=== PATIENT | male | born 1985 | race Two or more races ===

== ENCOUNTER 2022-08-07 09:04 | Inpatient (IN) | payer OTHER ==
[~2022-08-07] VITALS: Ht 177.8 cm; Wt 95.3 kg
--- NOTE | 2022-08-07 09:20 | NUR ---
Patient came in to the er c/o groin area/ inner thigh pain and swelling x 4 days. On room air, breathing normally and unlabored. kept comfortable, will continue to monitor accordingly.
[2022-08-07] MEDS ORDERED: ONDANSETRON HCL/PF 4 MG/2 ML VIAL IV ONE (10:00)
[2022-08-07] MEDS ORDERED: IV NS 0.9% 1,000 ML BAG IV ONE (10:00)
[2022-08-07] MEDS ORDERED: MORPHINE SULFATE INJ 2 MG/ML DISP.SYRIN IV ONE (10:00)
[2022-08-07] MEDS ORDERED: MORPHINE SULFATE INJ 4 MG/ML DISP.SYRIN ONE (10:10)
[2022-08-07] MEDS ORDERED: ONDANSETRON HCL/PF 4 MG/2 ML VIAL ONE (10:10)
[2022-08-07 10:31] LABS: BASOPHILS % (AUTO) 0.5 % (0.0-2.0); EOSINOPHILS % (AUTO) 0.8 % (0.0-6.0); HEMATOCRIT 41 % (39-51); HEMOGLOBIN 13.8 g/dL (13.5-17.5); LYMPHOCYTES # (AUTO) 1.5 K/uL (0.8-4.8); LYMPHOCYTES % (AUTO) 16.2 % (20.0-44.0); MEAN CORPUSCULAR HGB CONC 33 g/dl (31.0-36.0); MEAN CORPUSCULAR VOLUME 86 fL (80-96); MONOCYTES # (AUTO) 0.8 K/uL (0.1-1.30); MONOCYTES % (AUTO) 8.4 % (2.0-12.0); NEUTROPHILS % (AUTO) 74.1 % (43.0-81.0); PLATELET COUNT (AUTO) 282 K/uL (150-450); RED BLOOD CELL COUNT(AUTO) 4.76 MIL/uL (4.5-6.0); WHITE BLOOD COUNT (AUTO) 9.4 K/uL (4.3-11.0)
[2022-08-07] MEDS ORDERED: IOHEXOL-350 100 ML VIAL IV ONE (10:34)
[2022-08-07] MEDS ORDERED: IV NS 0.9% 250 ML IV ONE (10:34)
[2022-08-07 10:46] LABS: CALCIUM, SERUM 9.2 mg/dL (8.5-10.1); POTASSIUM 3.8 mmol/L (3.5-5.1)
[2022-08-07] MEDS ORDERED: CLINDAMYCIN 600 MG in IV D5W 100 ML IV ONE (12:00)
[2022-08-07] MEDS ORDERED: PIPERACILLIN /TAZOBACTAM 3.375 G in IV D5W 50 ML IV ONE (12:00)
[2022-08-07] MEDS ORDERED: VANCOMYCIN 1 GM in IV D5W 250 ML IV ONE (12:00)
--- NOTE | 2022-08-07 12:16 | NUR ---
dr anderson surgery called talking to dr mayer for surgery consult
--- NOTE | 2022-08-07 12:58 | NUR ---
[facility] [phone]...REQUESTED TO FAX COVID RESULT TO [phone]
--- NOTE | 2022-08-07 16:10 | NUR ---
Per patient, last PO intake was 0830. Dr Pete made aware.
--- NOTE | 2022-08-07 16:15 | NUR ---
PATIENT SIGNED CONSENT FOR SURGERY, BLOOD TRANSFUSION CONSENT AND ANSTHESIA CONSENT.
--- NOTE | 2022-08-07 18:12 | NUR ---
GOT BED 326-1 MICKY MALIK
--- NOTE | 2022-08-07 18:20 | NUR ---
report given to randy banks. awaiting transfer to floor.
--- NOTE | 2022-08-07 19:15 | NUR ---
RN Receiving Report. PT AOx4 able to express his own concerns. Patient speaks some Kyrgyz, fluent in Maori and Dominican. ER Nurse provided report, Endorsed to night nurse. Patient arrived safe to unit via gurney, transported by ER team. Patient states no pain at the moment since he was given pain medication at the ER. PLATE MOLDER to take vitals and RN to continue monitoring and providing care as needed. Per ER nurse able to eat now but should be NPO after midnight. Endorsed report to Night Nurse.
--- NOTE | 2022-08-07 19:55 | NUR ---
RN OPENING NOTED; PT RECEIVED IN BED AAOX4 SLOVAK AND [place]ILI SPEAKING WITH SOME MONGOLIAN.ON RM AIR ART WELL NO SIGN SOB/DISTRESS NOTED,NO COMPLAINE OF PAIN/DISCOMFORT AT THIS TIME,IV ACCESS ON LAC 18G SL,PATENT AND INTACT,SAFETY MEASURE INPLACE,CALL LIGHT WITHIN REACH,WILL CONTINUE TO MONITOR.
[2022-08-07 20:00] VITALS: BP 125/59
[2022-08-07] MEDS ORDERED: IV D5/0.45 NACL 1,000 ML IV PRN (21:00)
[2022-08-07] MEDS ORDERED: ONDANSETRON HCL/PF 4 MG/2 ML VIAL IVP PRN (21:00)
[2022-08-07] MEDS ORDERED: MORPHINE SULFATE INJ 2 MG/ML DISP.SYRIN IV PRN (21:00)
[2022-08-07] MEDS ORDERED: ACETAMINOPHEN 325 MG TABLET PO PRN (21:00)
[2022-08-07] MEDS ORDERED: PIPERACILLIN /TAZOBACTAM 3.375 G VIAL IV ONE (22:27)
[2022-08-07] MEDS: ZOSYN IVPB 3.375 G in IV D5W 50ml IV SCH (22:38)
[2022-08-08] VITALS (9 sets, daily range): BP systolic 110–129; BP diastolic 59–78
[2022-08-08] MEDS ORDERED: PIPERACILLIN /TAZOBACTAM 3.375 G VIAL IV ONE (03:53)
[2022-08-08] MEDS: ZOSYN IVPB 3.375 G in IV D5W 50ml IV SCH (03:57)
--- NOTE | 2022-08-08 06:37 | NUR ---
RN CLOSING NOTED; PT IN BED AAOX4 GUINEAN AND BENGALI SPEAKING WITH SOME SYRIAN.ON RM AIR ART WELL NO SIGN SOB/DISTRESS NOTED,NO COMPLAINE OF PAIN/DISCOMFORT DURING SHIFT,DUE MEDS GIVEN ORDER,ALL NEEDS ATTENDED,PT SCHEDULE FOR PROCEDURE TODAY @ 0730,PT NPO SINCE 2300,IV ACCESS ON LAC 18G SL,PATENT AND INTACT,SAFETY MEASURE INPLACE,CALL LIGHT WITHIN REACH,WILL ENDORSED TO NEXT SHIFT.
[2022-08-08] MEDS ORDERED: ANESTHESIA TRAY IN PYXIS 1 EA TRAY MC ONE ×4 (06:59→14:38)
[2022-08-08] MEDS ORDERED: LIDOCAINE 1% INJ 50 ML MDV IJ ONE (07:00)
--- NOTE | 2022-08-08 07:00 | NUR ---
MS RN OPENING NOTES: RECEIVED PT IN BED AWAKE A;ERT AND ORIENTED X 4 AND ABLE TO VERBALIZED NEEDS. NO SOB OR CARDIAC DISTRESS NOTED, ON ROOM AIR AND TOLERATING WELL. FOR SURGERY TODAY, MAINTAINED NPO. IV ACCESS ON LAC G#20 D5 NS 1L @ 75ML/HR. SAFETY PRECAUTIONS MAINTAINED: BED LOCKED AND IN LOWEST POSITION, SIDE RAILS UP X2 CALL LIGHT IN EASY REACH FOR HELP.
[2022-08-08] MEDS ORDERED: FENTANYL PF 100MCG/2ML AMPUL ONE ×2 (07:07→07:45)
[2022-08-08 07:09] LABS: BASOPHILS % (AUTO) 0.4 % (0.0-2.0); EOSINOPHILS % (AUTO) 1.8 % (0.0-6.0); HEMATOCRIT 40 % (39-51); HEMOGLOBIN 13.2 g/dL (13.5-17.5); LYMPHOCYTES # (AUTO) 1.6 K/uL (0.8-4.8); LYMPHOCYTES % (AUTO) 15.2 % (20.0-44.0); MEAN CORPUSCULAR HGB CONC 33 g/dl (31.0-36.0); MEAN CORPUSCULAR VOLUME 87 fL (80-96); MONOCYTES # (AUTO) 0.9 K/uL (0.1-1.30); MONOCYTES % (AUTO) 8.7 % (2.0-12.0); NEUTROPHILS # (AUTO) 7.8 K/uL (1.8-8.9); NEUTROPHILS % (AUTO) 73.9 % (43.0-81.0); PLATELET COUNT (AUTO) 269 K/uL (150-450); RED BLOOD CELL COUNT(AUTO) 4.58 MIL/uL (4.5-6.0); WHITE BLOOD COUNT (AUTO) 10.6 K/uL (4.3-11.0)
--- NOTE | 2022-08-08 07:20 | NUR ---
RN NOTES: PT PICKED UP BY OR TRANSPORTERS VIA BED. PT AWAKE, A/O X 4 NO SOB OR CARDIAC DISTRESS NOTED. VS WNL. PT LEFT THE UNIT STABLE.
[2022-08-08 07:48] LABS: CALCIUM, SERUM 9.2 mg/dL (8.5-10.1); CREATININE 1.1 mg/dL (0.6-1.3); MAGNESIUM 1.9 mg/dL (1.8-2.4); PHOSPHORUS 3.6 mg/dL (2.5-4.9); POTASSIUM 4.3 mmol/L (3.5-5.1)
--- NOTE | 2022-08-08 09:15 | NUR ---
RN NOTES: PT S/P INCISION AND DRAINAGE OF THE PERINEAL AREA BY DR DE LA ROSA. NOTED WITH DRESSING WITH TINGED OF BLOOD. RECEIVED BED SIDE ENDORSEMENT FROM MICKY SANTO, POST OP ORDERS VS PER ROUTINE, NS 1L @125 ML/HR, CONTINUE ANTIBIOTICS FOR 24HRS, REGULAR DIET, ACTIVITIES TOLERATED, NORCO 10-325 PO Q4HRS PRN FOR PAIN. ALL ORDERS NOTED AND CARRIED OUT. WILL MONITOR PT ACCORDINGLY.
[2022-08-08] MEDS: IV NS 0.9% 1,000 ML IV PRN ×2 (09:36→18:13)
[2022-08-08] MEDS ORDERED: HYDROCODONE/APAP 10/325MG TABLET PO PRN (11:00)
[2022-08-08] MEDS: PIPERACILLIN /TAZOBACTAM 3.375 G in IV D5W 50 ML IV SCH ×3 (11:46→23:40)
--- NOTE | 2022-08-08 18:47 | NUR ---
RN NOTES: PT DISCONNECTED TO IV AND WANTED TO WALK,WENT OUTSIDE TO SMOKE. PT SIGNED SMOKING FORM AND ACCOMPANIED BY OLGA NAVA.
--- NOTE | 2022-08-08 19:03 | NUR ---
MS RN CLOSING NOTES PT IN BED AWAKE ALERT AND ORIENTED X 4 AND ABLE TO VERBALIZED NEEDS NO SOB OR CARDIAC DISTRESS NOTED. IV ACCESS ON LAC G20 PATENT AND INTACT INFUSING NS 1L @125ML/HR. DRESSING REINFORCED ON LEFT GROIN/PERINEUM, NOTED WITH IODOFORM PACKING. SAFETY PRECAUTIONS MAINTAINED BED LOCKED AND IN LOWEST POSITION, SIDERAILS UP X 2. CALL LIGHT IN EASY REACH FOR HELP. ENDORSED TO NOC SHIFT FOR SUNITA.
--- NOTE | 2022-08-08 19:30 | NUR ---
MS RN OPENING NOTES RECEIVED PATIENT LYING IN BED AWAKE. A/O X4. BREATHING EVEN AND NON-LABORED ON ROOM AIR, SATURATING AT 99%. NOT IN APPARENT DISTRESS. NO C/O PAIN OR DISCOMFORT. HAS LEFT ANTECUBITAL IV ACCESS #20G WITH NS RUNNING AT 125 ML/HR. LEAKING NOTED. LEFT GROIN DRESSING C/D/I. SAFETY PRECAUTIONS IN PLACE: BED LOCKED AND IN LOWEST POSITION, SIDE RAILS UP X 2, CALL LIGHT WITHIN REACH. WILL CONTINUE POC.
[2022-08-09] MEDS: PIPERACILLIN /TAZOBACTAM 3.375 G in IV D5W 50 ML IV SCH ×2 (05:42→13:19)
[2022-08-09] MEDS: IV NS 0.9% 1,000 ML IV PRN (05:46)
--- NOTE | 2022-08-09 06:30 | NUR ---
MS RN CLOSING NOTES PATIENT LYING IN BED ASLEEP BUT EASY TO AROUSE. A/O X4. NO SOB OR NOTED, TOLERATING ROOM AIR WELL. DENIES PAIN AT THIS TIME. AFEBRILE. HAS LEFT HAND IV ACCESS #20G WITH NS RUNNING AT 125 ML/HR. INTACT, PATENT AND FLUSHING. NO BLEEDING NOTED ON THE LEFT PERINEAL AREA DRESSING. ALL DUE MEDS GIVEN AND NEEDS ATTENDED. SAFETY PRECAUTIONS MAINTAINED. WILL ENDORSE TO NEXT SHIFT FOR SUNITA.
--- NOTE | 2022-08-09 07:10 | NUR ---
ms rn received on bed, awake,alert,oriented x4,s/p i and d of perineal abscess,w/ dressing dry and intact,denies pain at this time,all needs attended.
--- NOTE | 2022-08-09 09:31 | NUR ---
WOUND CARE CONSULT: PT PRESENTS WITH PACKING TO PERINEUM WITH SECONDARY GAUZE SATURATED (SEROSANGUINOUS DRAINAGE, NO ODOR). SECONDARY GAUZE DRESSING CHANGED AND OPTIFOAM SURGICAL DRESSING PLACED. DEFER TO SURGEON FOR ORDERS CONCERNING CHANGING OF SURGICAL PACKING (IODOFORM PACKING). 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 [employer] REPORTER ASSISTING IN SPEAKING WITH PT. PT DENIES HAVING ANY DISCOMFORT AT THIS TIME. PT IS AMBULATORY AND CONTINENT.
[2022-08-09] MEDS ORDERED: DOXY-326 PO (10:59)
--- NOTE | 2022-08-09 11:00 | NUR ---
ms rn patient is ambulating good ,denies pain at this time,all needs attended.
--- NOTE | 2022-08-09 14:00 | NUR ---
ms rn will be discharge soon, refused to take picture of sacral wound.
--- NOTE | 2022-08-09 14:27 | NUR ---
ms rn dressing to left sarcal wound changed, iv atb given, discharge instructions given and understood, to have a follow up w/ doctor and understood, went home w/ atb rx,all needs attended.
== END 2022-08-09 14:25 | disposition home or self-care (01) | DRG 383 ==
LOC: ER 09:08 → TRANSITION 15:40 → MED 18:48
PROVIDERS: ADMIT Nurse Practitioner Acute Care; ATTEND Nurse Practitioner Acute Care
PROC: 0JBB0ZZ Excision of Perineum Subcutaneous Tissue and Fascia, Open Approach (ICD-10-PCS; principal; 2022-08-08)
DX: L02.215 Cutaneous abscess of perineum (principal); N50.82 Scrotal pain; Z20.822 Contact with and (suspected) exposure to COVID-19
CPT/HCPCS: 36415; 72193-TC; 76870-TC; 80048-TC; 83735-TC; 84100-TC; 85025-TC; 86850-TC; 87040-TC; 87070-TC; 87075-TC; 87081-TC; 87186-TC; A6253; A6403; A6407; C9803; G0378; J0330; J0690; J1100; J2270; J2405; J2543; J2704; J3010; J3370; J3490; J7030; J7050; J7060; Q9967